=== PATIENT | male | born 1970 | race American Indian/Alaskan Native ===

== ENCOUNTER 2017-11-06 13:08 | Emergency (ER) | payer SELFPAY ==
--- NOTE | 2017-11-06 14:20 | XRay Report ---
LEFT SHOULDER: History: Shoulder pain, fall from ladder. Routine views demonstrate normal bony and soft tissue structures with normal joint alignment of the shoulder. IMPRESSION: Normal study.
--- NOTE | 2017-11-06 14:39 | Cat Scan Report ---
CT HEAD WITHOUT CONTRAST: HISTORY: Head injury, fall, headache, loss of consciousness. TECHNIQUE: Sequential 2.5mm CT images. COMPARISON: none. FINDINGS: Cerebral Parenchyma: Within normal limits. Cerebellum: Within normal limits. Brainstem: Within normal limits. Ventricles: Normal. Sella: Normal. Extra-axial spaces: Normal. Basal Cisterns: Normal. Intracranial Hemorrhage: None. Midline Shift: None. Calvarium: Normal. Sinuses: Normal. Mastoid Air Cells: Normal. Visualized Orbits: Normal. IMPRESSION: Cranial CT scan within normal limits.
--- NOTE | 2017-11-06 14:42 | Cat Scan Report ---
CT SCAN OF THE CERVICAL SPINE: HISTORY: Fall off of ladder, neck pain, loss of consciousness. TECHNIQUE: Contiguous 1.25 mm axial images of the cervical spine were obtained. Sagittal and coronal reformatted images. FINDINGS: There is normal alignment of the cervical spine. The body, pedicles and posterior ligaments appear normal. No evidence of fracture or subluxation is seen. Mild degenerative disc disease is identified at all levels. A bridging anterior osteophyte is noted at C3-4. The spinal canal appears normal. The prevertebral soft tissues appear normal. IMPRESSION: Cervical spondylosis. No acute process is noted.
[2017-11-06] MEDS ORDERED: MOTRIN PO ONE (16:37)
[2017-11-06] MEDS ORDERED: FLEXERIL PO ONE (16:37)
--- NOTE | 2017-11-06 16:37 | Emergency Department Report ---
ED Fall HPI - General Chief Complaint: Fall Stated Complaint: FEEL OFF LADDER Time Seen by Provider: 11/06/17 15:26 Source: patient Mode of arrival: Ambulatory - History of Present Illness Initial Comments: Mr Waller is a 47 year-old man without PMH who presents after fall from step ladder. Fell backwards, hit his head. + LOC. Was on second step. With head, neck and left shoulder pain. no weakness, no tingling. No changes in vision. initially with headache which has improved. no ASA or blood thinners. Full use of left arm. Able to walk. No other complaints. Has been well otherwise recently. - Related Data Allergies Allergy/AdvReac Type Severity Reaction Status Date / Time No Known Allergies Allergy Unverified 11/06/17 13:18 ED Review of Systems ROS: Stated complaint: FEEL OFF LADDER Other details as noted in HPI Comment: All other systems reviewed and negative ED Past Medical Hx - Past Medical History Previous Medical History?: Yes Hx Hypertension: Yes - Surgical History Past Surgical History?: No - Social History Smoking Status: Never Smoker ED Physical Exam - General Limitations: No Limitations General appearance: alert, in no apparent distress - Head Head exam: Present: atraumatic, normocephalic - Eye Eye exam: Present: normal appearance, PERRL, EOMI. Absent: nystagmus - ENT ENT exam: Present: normal exam, normal orophraynx, mucous membranes moist - Neck Neck exam: Present: normal inspection, tenderness, full ROM, other (left lateral spinal ttp, no midline spinal ttp). Absent: meningismus - Respiratory Respiratory exam: Present: normal lung sounds bilaterally. Absent: respiratory distress, wheezes, rales, rhonchi, chest wall tenderness, accessory muscle use - Cardiovascular Cardiovascular Exam: Present: regular rate, normal rhythm. Absent: systolic murmur, diastolic murmur, rubs, gallop - GI/Abdominal GI/Abdominal exam: Present: soft, normal bowel sounds. Absent: distended, tenderness, guarding, rebound - Rectal Rectal exam: Present: deferred - Extremities Exam Extremities exam: Present: normal inspection, full ROM, tenderness, normal capillary refill, other (left posterior shoulder ttp. Full ROM). Absent: pedal edema, joint swelling, calf tenderness - Back Exam Back exam: Present: normal inspection, full ROM, tenderness, paraspinal tenderness. Absent: CVA tenderness (R), CVA tenderness (L), muscle spasm, vertebral tenderness - Neurological Exam Neurological exam: Present: alert, oriented X3, CN II-XII intact, normal gait. Absent: motor sensory deficit - Psychiatric Psychiatric exam: Present: normal affect, normal mood - Skin Skin exam: Present: warm, dry, intact, normal color. Absent: rash ED Course Vital Signs 11/06/17 13:19 Temperature 98.7 F Pulse Rate 74 Respiratory 16 Rate Blood Pressure 163/88 O2 Sat by Pulse 98 Oximetry ED Medical Decision Making - Radiology Data Radiology results: report reviewed, image reviewed - Medical Decision Making Mr Waller is a 47 year-old man who presents after fall from step ladder this morning. + LOC. left shoulder neck head and back pain. No midline spinal ttp. neuro intact. LUE NV intact. CT head/neck from triage negative for acute injury. XR shoulder negative as well. well appearing. Only paraspinal and left shoulder ttp. Giving ibuprofen, flexeril. DC to home with care instructions, return precautions and pcp follow-up this week. DC to home Critical care attestation.: If time is entered above; I have spent that time in minutes in the direct care of this critically ill patient, excluding procedure time. ED Disposition Clinical Impression: Fall (on) (from) other stairs and steps, initial encounter Disposition: DC-01 TO HOME OR SELFCARE Is pt being admited?: No Does the pt Need Aspirin: No Condition: Stable Instructions: Fall Prevention (ED), Concussion (ED), Core Strengthening Exercises (GEN), Back Pain (ED) Referrals: PRIMARY CARE,MD [Primary Care Provider] - 3-5 Days
[2017-11-06 17:07] VITALS: BP 163/84
== END 2017-11-06 17:06 | disposition home or self-care (01) ==
LOC: ED 13:08
DX: R51 Headache (principal); M54.2 Cervicalgia; M25.512 Pain in left shoulder; I10 Essential (primary) hypertension; W10.8XXA Fall (on) (from) other stairs and steps, initial encounter; Y93.89 Activity, other specified; Y92.89 Other specified places as the place of occurrence of the external cause; Y99.8 Other external cause status
CPT/HCPCS: 70450; 72125; 99284